=== PATIENT | male | born 1965 ===

== ENCOUNTER → 2018-01-19 | Outpatient (CLI) | payer BC ==
[~2018-01-19] MED LIST: CARV12.578 PO
[2018-01-19 11:51] LABS: PLATELET COUNT, AUTOMATED 215 K/uL (150-450)
[2018-01-19 12:01] LABS: LDL CHOLESTEROL 121 mg/dl
== END ==
LOC: LAB 10:57
PROVIDERS: ATTEND Internal Medicine
DX: Z12.5 Encounter for screening for malignant neoplasm of prostate (principal); I10 Essential (primary) hypertension
CPT/HCPCS: 36415; 81001; 82040; 82247; 82310; 82374; 82435; 82465; 82565; 82947; 83718; 84075; 84132; 84153; 84155; 84295; 84443; 84450; 84460; 84478; 84520; 84550; 85025

== ENCOUNTER 2018-02-16 12:46 | Inpatient (IN) | payer BC ==
[~2018-02-16] VITALS: Ht 182.9 cm; Wt 90.7 kg
[2018-02-16 13:29] VITALS: BP 125/87
--- NOTE | 2018-02-16 14:25 | History & Physical - General ---
History of Present Illness Chief Complaint Black tarry stools and dizziness History of Present Illness This patient is a pleasant 53-year-old male who was seen by me for the very 1st time less than 1 month ago according to patient he has moved here from [place] to help his parents. Chief complaint is that since yesterday morning he has had about 6 episodes of black tarry stools he denies any abdominal pain although feels like it is more sensitive in the lower abdomen he denies any nausea or vomiting yesterday after bowel movement he felt dizzy and almost fainted. Yesterday he also notices that his blood pressure was low throughout the day with systolic reading between 101 20. He did not take his diuretics and carvedilol yesterday morning he did take half dose of carvedilol today. His last colonoscopy was about 2 years ago in [place] according to patient he has 2 polyps removed but those were benign and was advised to repeat colonoscopy in 10 years patient denies any NSAID or aspirin use recently. He did have some wine to drink 2-3 days ago he denies any epigastric pain last bowel movement was last night he felt a little better today Patient has recently been started on blood pressure medications in the form of carvedilol and Dyazide he was not able to tolerate beta blockers in the past and amlodipine caused edema of the lower extremities and Benicar has caused angioedema in the past his blood pressure was 155/113 when he 1st came in on . The blood pressure has improved steadily on the present treatment with carvedilol 25 mg twice a day and triamterene/hydrochlorothiazide 37.5/25 once a day Hemoccult was done in the office and has shown clotted blood rest of the labs are unremarkable Hemoccult done through the lab was negative hemoglobin and hematocrit was 12.5/36.6 this has decreased from 16.8/48.6 on 01/11 ROS: Constitutional: Reports: Weakness, Denies: Fever, Chills, Weight Loss, Weight Gain ROS: Eyes: Denies: Eye Pain, Itchy Eye ROS: HENT: Denies: Ear Drainage, Ear Pain, Ear Pressure ROS: Neurological: Denies Syncope, Reports Dizziness, Denies Vertigo, Denies Seizure ROS: Respiratory: Denies Dyspnea, Denies SOB at Rest, Denies SOB w/ Exertion ROS: Cardiac: Denies Chest Pain at Rest, Denies Chest Pain w/ Exertion ROS: Gastrointestinal: Reports Diarrhea, Reports Black Tarry Stools, Denies Nausea, Denies Vomiting ROS: Genitourinary: Denies Urinary Frequency, Denies Dyuria, Denies Hematuria ROS: Integumentary: Denies Rash, Denies Lesions ROS: Psych: Denies Depression, Denies Anxiety ROS: Endocrine: Denies Intolerence to Heat, Denies Intolerence to Cold ROS: Lymph: Denies Swollen Lymph Nodes History Problems: (1) Hyperlipidemia Status: Chronic (2) Benign hypertension Status: Chronic Home Meds Active Scripts Carvedilol (CARVEDILOL) 25 Mg Tablet, 25 MG PO BID, #60 TAB 3 Refills Prov:SILVERIO DONALDSON MD 02/02/18 Triamterene/Hydrochlorothiazid (TRIAMTERENE-HCTZ 37.5-25 MG CP) 1 Each Capsule, 1 EACH PO QAM, #30 CAPSULE 3 Refills Prov:SILVERIO DONALDSON MD 01/26/18 Allergies: Coded Allergies: olmesartan (Verified Allergy, Unknown, angioedema, 01/19/18) Patient History: FH: breast cancer maternal grandma FH: colon cancer maternal grandmother FH: leukemia paternal grandfather FH: ovarian cancer MOTHER, Age:79 Hx Smoking: No Smoking Status: Never Smoker Hx Alcohol Use: Yes Alcohol Use: Currently Alcohol Used: Wine Hx Substance Use Disorder: No Social Drug Use: Never Review of Systems ROS: Constitutional: Reports: Malaise, Weakness, Denies: Fever, Chills, Weight Loss, Weight Gain ROS: Eyes: Denies: Eye Pain, Itchy Eye, Vision change ROS: HENT: Denies: Ear Drainage, Ear Pain, Ear Pressure ROS: Neurological: Denies Syncope, Reports Dizziness, Denies Vertigo, Denies Seizure ROS: Respiratory: Denies Dyspnea, Denies SOB at Rest, Denies SOB w/ Exertion ROS: Cardiac: Denies Chest Pain at Rest, Denies Chest Pain w/ Exertion ROS: Gastrointestinal: Reports Diarrhea, Reports Bloody Stools, Reports Black Tarry Stools, Denies Nausea, Denies Vomiting ROS: Genitourinary: Denies Urinary Frequency, Denies Dyuria, Denies Hematuria ROS: Psych: Denies Depression, Reports Anxiety, Denies Insomnia ROS: Endocrine: Denies Intolerence to Heat, Denies Intolerence to Cold Exam Constitutional: Well Nourished, Well Developed, No Distress Eyes: PERRL, Conjunctivae Clear, Sclera Clear ENT: Normal Respiratory: CTA throughout, Even, Unlabored Cardiac: Regular Rate & Rhythm, No Gallop, No JVD, No Murmur, No Edema Inspection: Flat Percussion: All Quadrants Tympanic Palpation: Soft, Non-tender, No Guarding, No Hepatosplenomegaly, Other ( positive clotted blood on rectal examination) Bowel Sounds: Active to all 4 Quadrants Male : No Suprapubic Tenderness Lymph: No Cervical Lymphadenopathy Musculoskeletal: Full ROM all 4 Extremitites Psych: Appropriate Mood and Affect Medical Decision Making Data Points Hemoglobin 12.5 and hematocrit 36.6. Rest of the labs are unremarkable Pre-Admit Course Medical Record Review: Yes Assessment and Plan Problems: (1) Lower GI bleeding Status: Acute Assessment & Plan: Patient has evidence of GI bleeding starting yesterday morning he has no obvious risk factors including NSAID use but hemoglobin and hematocrit has decreased from 16.8 and 48.6 on 01/19/18 to 12.5/36.6 today plan is to diabetic screen 2 units of blood and repeat H&H at [address] him on clear liquid diet he will also be placed on IV fluids and will request a consult from general surgeon Dr. Andrade who has been notified of the case (2) Dizziness Status: Acute Assessment & Plan: Likely related to the above blistered IV fluids at 0.9 normal saline with potassium (3) Benign hypertension Status: Chronic Assessment & Plan: Hold blood pressure medicine for now Time Spent on Plan of Care: < 30 min Venous Thromboembolism VTE Risk Patient's VTE Risk: Low VTE Diagnostic Test 2 Days Prior to Admit: No Antithrombotics Is Pt On Any Antithrombotics?: No Prophylaxis Tx Contraindicated Pharmacological Contraindicati: Active Bleeding Exam Sepsis Risk: No Definite Risk SILVERIO DONALDSON MD Feb 16, 2018 14:25
[2018-02-16] MEDS: PANTOPRAZOLE SOD 40 MG IV VIAL IVP SCH ×2 (15:23→21:04)
[2018-02-16] MEDS: KCL/NS* 20 MEQ/1000 ML PREMIX 1,000 ML IV PRN (15:23)
[2018-02-16] MEDS ORDERED: PEG (High)/E-LYTE SOLN 4000 ML PO ONE (17:00)
--- NOTE | 2018-02-16 18:12 | General Surgery Consultation ---
History of Present Illness Requesting Physician Dr. Lane Reason for Consult GI bleeding Chief Complaint Melena History of Present Illness 53-year-old male is admitted to the hospital with melena for the last week and increased in severity yesterday test 6 melanotic stools with associated lightheadedness but he has not yet had any melanotic stools today. No abdominal pain. No nausea or vomiting. No known family history of GI issues other than his grandma who had colon cancer but he does not recall at what age. The patient had a colonoscopy where a couple of benign polyps were removed and he was told to have another colonoscopy in 10 years. This colonoscopy was done in [facility]. The patient denies any previous history of peptic ulcer disease. He does not take NSAIDs or steroids. History Problems: (1) Hyperlipidemia Status: Chronic (2) Benign hypertension Status: Chronic Home Meds Active Scripts Carvedilol (CARVEDILOL) 25 Mg Tablet, 25 MG PO BID, #60 TAB 3 Refills Prov:SILVERIO LANE MD 02/02/18 Triamterene/Hydrochlorothiazid (TRIAMTERENE-HCTZ 37.5-25 MG CP) 1 Each Capsule, 1 EACH PO QAM, #30 CAPSULE 3 Refills Prov:SILVERIO LANE MD 01/26/18 Allergies: Coded Allergies: olmesartan (Verified Allergy, Unknown, angioedema, 01/19/18) Family History: FH: breast cancer maternal grandma FH: colon cancer maternal grandmother FH: leukemia paternal grandfather FH: ovarian cancer MOTHER, Age:79 Review of Systems Gastrointestinal: Melena Exam Vital Signs Vital Signs Date Time Temp Pulse Resp B/P (MAP) Pulse Ox O2 Delivery O2 Flow Rate FiO2 02/16/18 13:57 94 Room Air 02/16/18 13:29 98.3 79 18 125/87 (100) General Appearance: Alert, Awake, No Acute Distress, Afebrile Neuro: No Gross deficits Eyes: PERRLA GI: Abd Soft and Non-Tender Extremities: Warm, Perfused Assessment and Plan Problems: (1) Black tarry stools Status: Acute Assessment & Plan: 02/16/2018: Patient is admitted to Med/Surg by Dr. Lane and I have been consulted. The most likely source of his melena is an upper GI source such as peptic ulcer disease. I have recommended an EGD and colonoscopy and I have explained the reasoning behind this even though he is just had a colonoscopy 2 years ago. He was asymptomatic at the time of that colonoscopy, it was for screening purposes only. He is now having melena and so for optimal workup upper and lower GI endoscopy is recommended. I have explained both procedures to him in great detail as well as their alternatives and risks. He indicates his understanding of this discussion and his questions been answered. He would like to proceed with both EGD and colonoscopy. Condition Stable Time Spent: < 30 min Venous Thromboembolism Antithrombotics Is Pt On Any Antithrombotics?: No MABEL FINCH MD Feb 16, 2018 18:12
[2018-02-16 18:45] VITALS: BP 130/94
[2018-02-16 20:11] VITALS: BP 121/70
[2018-02-16 23:28] VITALS: BP 122/77
[2018-02-17 03:46] VITALS: BP 127/92
[2018-02-17] MEDS: KCL/NS* 20 MEQ/1000 ML PREMIX 1,000 ML IV PRN (05:03)
[2018-02-17 05:55] LABS: PLATELET COUNT, AUTOMATED 144 K/uL (150-450)
[2018-02-17 07:00] VITALS: BP 130/95
[2018-02-17] MEDS ORDERED: LR(*) 1000 ML BAG 1,000 ML ONE (07:00)
[2018-02-17] MEDS ORDERED: PROPOFOL EMUL(*) 10MG/ML 20 ML 60 ML ONE (07:21)
[2018-02-17] MEDS ORDERED: LIDOCAINE MPF 1% 5 ML VIAL ONE (07:21)
--- NOTE | 2018-02-17 07:24 | General Surgery Progress Note ---
Subjective Progress Notes Subjective No complaints this morning. Feeling good. "I feel better after the bowel prep. " No more blood in stools, stools clear. Physical Exam Vital Signs Date Time Temp Pulse Resp B/P (MAP) Pulse Ox O2 Delivery O2 Flow Rate FiO2 02/17/18 07:00 97.7 83 16 130/95 (107) 100 Room Air General Appearance: Alert, Awake, No Acute Distress, Afebrile GI: Soft and Non-Tender Extremities: Warm, Perfused Result Diagram: 02/17/18 0532 02/17/18 0532 Assessment and Plan Problems: (1) Black tarry stools Status: Acute Assessment & Plan: 02/16/2018: Patient is admitted to Med/Surg by Dr. Lane and I have been consulted. The most likely source of his melena is an upper GI source such as peptic ulcer disease. I have recommended an EGD and colonoscopy and I have explained the reasoning behind this even though he is just had a colonoscopy 2 years ago. He was asymptomatic at the time of that colonoscopy, it was for screening purposes only. He is now having melena and so for optimal workup upper and lower GI endoscopy is recommended. I have explained both procedures to him in great detail as well as their alternatives and risks. He indicates his understanding of this discussion and his questions been answered. He would like to proceed with both EGD and colonoscopy. 02/17/18: Doing well. No further signs of ongoing GI bleeding. H/H stable ( even up a little). Will proceed with EGD and colonoscopy this morning. Pt wishes to proceed. Condition Stable. Time Spent: < 30 min Exam Sepsis Risk: No Definite Risk MABEL FINCH MD Feb 17, 2018 07:24
[2018-02-17] MEDS ORDERED: BARIUM SULFATE 600 ML SUSP ONE (08:53)
[2018-02-17] MEDS: PANTOPRAZOLE SOD 40 MG IV VIAL IVP SCH (09:00)
[2018-02-17 12:18] VITALS: BP 128/95
--- NOTE | 2018-02-17 13:14 | Medical Nutrition Therapy ---
Nutrition Anthropometrics Height (Inches): 72.00 Height (Calculated Centimeters: 182.544966 Weight (Pounds): 200 Weight (Calculated Kilograms): 90.718 Jarvis Nutrition Score: Adequate Jarvis Nutrition Risk Score: 20 Dietary Referral Nutrition Risk Factors: Nutrition Risk Comment: Nutritional Diagnosis Nutritional Risk Acuity 3: GI Bleed Past Medical History: HLD and benign HTN Nutritional Acuity: 3-Mild Nutrition Diagnosis: Altered GI Function Nutrition Etiology: Physiological Causes Nutrition Problem/Etiology/Sym: Altered GI Function related to physiological causes as evidence by lower GI bleed with black tarry stools. Energy Requirement: 2270 (kcal/day (25 kcal/kg)) Protein Requirement: 82 (g/day (0.9 g/kg)) Fluid Requirement: 2720 (mL/day (30 mL/kg)) Diet Type: NPO (Nothing by Mouth) Nutrition Intervention: Incr diet as tolerated Nutrition Monitoring & Eval Nutrition Goals: Diet advancement as tolerated Nutrition Follow-Up: Poor Intake RD Patient Assessment Time: [address] Assessment Type: RD Assessment Patient Nutrition Acuity: 3-Mild Follow Up Date: Feb 20, 2018 Nutritional Comment: 02/17 Pt admitted for lower GI bleed. Plan for EGD and colonoscopy today. Pt diet order NPO. Pt has consumed 100% x 1 clear tray prior to NPO diet order. Pt inappropriate for visit today due to NPO diet order and colonoscopy prep. HGB 10.5, HCT 30.0, ALB 2.7. Monitor pt progress, diet advancement and tolerance to PO intake. GLENIS FERRARO Feb 17, 2018 09:12
--- NOTE | 2018-02-17 16:39 | Hospitalist Progress Note ---
Subjective Progress Notes Subjective Patient underwent EGD and colonoscopy earlier today no obvious bleeding source identified hemoglobin earlier today was 10.5 which is improved from yesterday patient did undergo a small bowel follow-through the results are awaited is hungry and has been cleared to eat regular diet Diastolic blood pressure is somewhat elevated since patient has been off his blood pressure medications Patient Complains of: Neurological: No: Syncope, Confusion, Weakness Cardiovascular: No: Chest Pain, Palpitations Respiratory: No: Cough, Congestion, Shortness of Breath Gastrointestinal: No Vomiting, No Bowel Movement Genitourinary: No Dysuria Physical Exam Vital Signs Date Time Temp Pulse Resp B/P (MAP) Pulse Ox O2 Delivery O2 Flow Rate FiO2 02/17/18 12:18 98.1 16 128/95 (106) 100 Nasal Cannula 1.0 02/17/18 08:45 61 Intake and Output 02/18/18 07:00 Intake Total 1900 ml Balance 1900 ml Intake Oral 100 ml IV Total 900 ml Other 900 ml Result Diagram: 02/17/18 0532 02/17/18 0532 Assessment and Plan Problems: (1) Lower GI bleeding Status: Acute Assessment & Plan: 02/16/18 Patient has evidence of GI bleeding starting yesterday morning he has no obvious risk factors including NSAID use but hemoglobin and hematocrit has decreased from 16.8 and 48.6 on 01/19/18 to 12.5/ 36.6 today plan is to diabetic screen 2 units of blood and repeat H&H at [address] him on clear liquid diet he will also be placed on IV fluids and will request a consult from general surgeon Dr. Andrade who has been notified of the case 02/17/18 EGD and colonoscopy without any obvious bleeding source hemoglobin and hematocrit has stabilized to slightly improved since yesterday and small bowel follow-through has been completed the results are awaited patient has been cleared to have regular diet by Dr. Andrade and IV fluids have been discontinued anticipate discharge tomorrow if he continues to do well (2) Dizziness Status: Acute Assessment & Plan: 02/16/18 Likely related to the above IV fluids at 0.9 normal saline with Resolved likely related to lower GI bleed and antihypertensive medications plan is to DC IV fluids and start regular diet (3) Benign hypertension Status: Chronic Assessment & Plan: Hold blood pressure medicine for now 02/17/18 plan is to resume blood pressure medication in the morning if no further signs of bleeding Exam Sepsis Risk: No Definite Risk SILVERIO DONALDSON MD Feb 17, 2018 16:39
--- NOTE | 2018-02-17 17:23 | RADIOLOGY IMAGING REPORT ---
FACILITY: [facility] - [place] PATIENT NAME: Zackary Vázquez : 1965 MR: [id number] V: [id number] EXAM DATE: ORDERING PHYSICIAN: MABEL FINCH TECHNOLOGIST: Location: Patient: Zackary Vázquez : 1965 Visit/Account:[id number] Date of Sevice: 02/17/2018 Exam type: SMALL BOWEL SERIES History: GI bleeding, negative EGD/c-scope Comparison: None. Findings: The patient received 1000 mL of intravenous with oral contrast. Multiple sequential images were obta ined over the abdomen and pelvis. The contrast was followed throughout the small bowel to the unrema rkable terminal ileum. Transit time to the right-sided colon was two hours and 15 minutes. The muco leroy pattern appeared unremarkable. There is no evidence of bowel obstruction or extrinsic mass effec t. No demonstration of a Meckel's diverticulum. The fluoroscopy dose area product was 1210.41 micro -Calvo per meter squared IMPRESSION: 1. Normal-appearing small bowel series Report Dictated By: Barbara Moran MD at 02/17/2018 5:12 PM Report E-Signed By: Barbaar Moran MD at 02/17/2018 5:15 PM SILVIAN:GILBERTO
[2018-02-17 19:14] VITALS: BP 126/91
--- NOTE | 2018-02-18 05:39 | General Surgery Progress Note ---
Subjective Progress Notes Subjective No complaints. Had a small bowel movement overnight which was just barium, no blood. No other issues. Physical Exam Vital Signs Date Time Temp Pulse Resp B/P (MAP) Pulse Ox O2 Delivery O2 Flow Rate FiO2 02/18/18 00:25 53 93 Room Air 02/17/18 19:14 98.1 14 126/91 (103) 02/17/18 12:18 1.0 General Appearance: Alert, Awake, No Acute Distress, Afebrile GI: Soft and Non-Tender Extremities: Warm, Perfused Result Diagram: 02/17/18 0532 02/17/18 0532 Assessment and Plan Problems: (1) Black tarry stools Status: Acute Assessment & Plan: 02/16/2018: Patient is admitted to Med/Surg by Dr. Lane and I have been consulted. The most likely source of his melena is an upper GI source such as peptic ulcer disease. I have recommended an EGD and colonoscopy and I have explained the reasoning behind this even though he is just had a colonoscopy 2 years ago. He was asymptomatic at the time of that colonoscopy, it was for screening purposes only. He is now having melena and so for optimal workup upper and lower GI endoscopy is recommended. I have explained both procedures to him in great detail as well as their alternatives and risks. He indicates his understanding of this discussion and his questions been answered. He would like to proceed with both EGD and colonoscopy. 02/17/18: Doing well. No further signs of ongoing GI bleeding. H/H stable ( even up a little). Will proceed with EGD and colonoscopy this morning. Pt wishes to proceed. 02/18/18: Doing well. No signs of further GI bleeding. Awaiting this morning' s labs but H/H has been stable. EGD and colonoscopy completed yesterday without any old or new blood and no pathology in esophagus, stomach, or duodenum to D3, or colon that would serve as a source of bleeding. Normal SBFT as well. Pt doing well so if labs look good this morning then he can go home. I will have my nurse schedule a Meckel scan and a f/u appointment to see me in my office. If he exhibits recurring GI bleeding and Meckel scan is negative then he will require small bowel capsule endoscopy. Condition Stable. Time Spent: < 30 min Exam Sepsis Risk: No Definite Risk MABEL FINCH MD Feb 18, 2018 05:39
[2018-02-18 05:49] LABS: PLATELET COUNT, AUTOMATED 155 K/uL (150-450)
[2018-02-18 07:42] VITALS: BP 142/102
[2018-02-18] MEDS ORDERED: PANTOPRAZOLE SOD 40 MG TABEC PO SCH (09:00)
[2018-02-18] MEDS ORDERED: FAMO20TA28 PO (14:02)
--- NOTE | 2018-02-19 08:33 | Hospitalist Depart ---
Discharge Summary Reason for Hosp/Final Diag: (1) Lower GI bleeding Status: Resolved Hospital Course & Plan: 02/16/18 Patient has evidence of GI bleeding starting yesterday morning he has no obvious risk factors including NSAID use but hemoglobin and hematocrit has decreased from 16.8 and 48.6 on 01/19/18 to 12.5/ 36.6 today plan is to diabetic screen 2 units of blood and repeat H&H at [address] him on clear liquid diet he will also be placed on IV fluids and will request a consult from general surgeon Dr. Andrade who has been notified of the case 02/17/18 EGD and colonoscopy without any obvious bleeding source hemoglobin and hematocrit has stabilized to slightly improved since yesterday and small bowel follow-through has been completed the results are awaited patient has been cleared to have regular diet by Dr. Andrade and IV fluids have been discontinued anticipate discharge tomorrow if he continues to do well 02/18/18 hemoglobin and hematocrit has remained stable since yesterday no signs of bleeding noted patient is able to tolerate diet well he denies any dizziness or lightheadedness plan is to discharge him home today he will need a nuclear medicine Meckel's scan which is to be scheduled by Dr. Andrade's office Patient will continue to watch for signs and symptoms of lower GI bleed and contact our office immediately if he notices any (2) Dizziness Status: Acute Hospital Course & Plan: 02/16/18 Likely related to the above IV fluids at 0.9 normal saline with potassium 02/17/18 Resolved likely related to lower GI bleed and antihypertensive medications plan is to DC IV fluids and start regular diet 02/18/18 IV fluid has been discontinued and patient has remained stable without any signs of dizziness (3) Benign hypertension Status: Chronic Hospital Course & Plan: Hold blood pressure medicine for now 02/17/18 plan is to resume blood pressure medication in the morning if no further signs of bleeding blood pressure has been increasing plan is to start him on carvedilol 25 mg twice a day and I will continue to hold off on Dyazide for now patient is to follow-up in the office in one week Departure Weight (Pounds): 200 Result Diagram: 02/18/18 0520 02/18/18 0520 Item Value Date Time Hemoglobin 9.8 g/dL L 02/16/18 1756 Hemoglobin 11.0 g/dL L 02/17/18 0000 Hemoglobin 10.5 g/dL L 02/17/18 0532 Hemoglobin 10.7 g/dL L 02/18/18 0520 Hematocrit 28.7 % L 02/16/18 1756 Hematocrit 31.3 % L 02/17/18 0000 Hematocrit 30.0 % L 02/17/18 0532 Hematocrit 31.2 % L 02/18/18 0520 Platelet Count 144 K/uL L 02/17/18 0532 Platelet Count 155 K/uL 02/18/18 0520 Helicobacter pylori IgG Antibody Negative 02/17/18531 Stool Occult Blood (IFOB) Negative 02/16/182004 Imaging FACILITY: [facility] - [place] PATIENT NAME: Zackary Vázquez : 1965 MR: [id number] V: [id number] EXAM DATE: ORDERING PHYSICIAN: MABEL FINCH TECHNOLOGIST: [place] [facility] [place]ary Váz[place] : 1965 Visit/Account:[id number] Date of Sevice: 02/17/2018 Exam type: SMALL BOWEL SERIES History: GI bleeding, negative EGD/c-scope Comparison: None. Findings: The patient received 1000 mL of intravenous with oral contrast. Multiple sequential images were obtained over the abdomen and pelvis. The contrast was followed throughout the small bowel to the unremarkable terminal ileum. Transit time to the right-sided colon was two hours and 15 minutes. The mucosal pattern appeared unremarkable. There is no evidence of bowel obstruction or extrinsic mass effect. No demonstration of a Meckel's diverticulum. The fluoroscopy dose area product was 1210.41 micro-Calvo per meter squared IMPRESSION: 1. Normal-appearing small bowel series Report Dictated By: aBrbara Moran MD at 02/17/2018 5:12 PM Report E-Signed By: Barbara Moran MD at 02/17/2018 5:15 PM Condition: Improved Discharge: Home Time Spent: < 30 min Discharge Instructions Home Meds Active Scripts Famotidine (PEPCID) 20 Mg Tablet, 1 TAB PO Q6H, #4 TAB 0 Refills Take 1 tablet by mouth every 6 hours for 4 doses for the 24 hours leading up to your Meckel scan. Prov:MABEL FINCH MD 02/18/18 Carvedilol (CARVEDILOL) 25 Mg Tablet, 25 MG PO BID, #60 TAB 3 Refills Prov:SILVERIO DONALDSON MD 02/02/18 Discontinued Scripts Triamterene/Hydrochlorothiazid (TRIAMTERENE-HCTZ 37.5-25 MG CP) 1 Each Capsule, 1 EACH PO QAM, #30 CAPSULE 3 Refills Prov:SILVERIO DONALDSON MD 01/26/18 Diet: Regular Activity: As Tolerated Special Instructions: Will follow up with me within one week and will follow-up with Dr. Andrade in 1-2 weeks patient to have Meckel's scan outpatient To contact our office or go to the emergency room if notices any signs of bleeding Venous Thromboembolism Antithrombotics Is Pt On Any Antithrombotics?: No SILVERIO DONALDSON MD Feb 19, 2018 08:33
== END 2018-02-18 09:15 | disposition home or self-care (01) | DRG 379 ==
LOC: OBSVTOIN 13:16 → INTOOBSV 13:16 → MED 13:16
PROVIDERS: ADMIT Internal Medicine; ATTEND Internal Medicine
PROC: 0DBL8ZX Excision of Transverse Colon, Via Natural or Artificial Opening Endoscopic, Diagnostic (ICD-10-PCS; principal; 2018-02-16)
PROC: 0DJ08ZZ Inspection of Upper Intestinal Tract, Via Natural or Artificial Opening Endoscopic (ICD-10-PCS; 2018-02-16)
DX: K92.2 Gastrointestinal hemorrhage, unspecified (principal); K63.5 Polyp of colon; I10 Essential (primary) hypertension; E78.5 Hyperlipidemia, unspecified; Z88.8 Allergy status to other drugs, medicaments and biological substances
CPT/HCPCS: 36415; 74250; 82040; 82247; 82274; 82310; 82374; 82435; 82565; 82947; 84075; 84132; 84155; 84295; 84450; 84460; 84520; 85014; 85018; 85025; 86677; 86850; 86900; 86901; 88305; C9113; J2001; J2704; J3480

== ENCOUNTER → 2018-02-16 | Outpatient (CLI) | payer BC ==
[~2018-02-16] MED LIST changes: +CARV25TA78 PO; +TRIA1CAP85 PO
[2018-02-16 12:09] LABS: PLATELET COUNT, AUTOMATED 182 K/uL (150-450)
[2018-02-16 12:18] LABS: INR 1.01
== END ==
LOC: LAB 11:31
PROVIDERS: ATTEND Internal Medicine
DX: K92.1 Melena (principal); I10 Essential (primary) hypertension; R42 Dizziness and giddiness
CPT/HCPCS: 36415; 82040; 82150; 82247; 82274; 82310; 82374; 82435; 82565; 82947; 83690; 84075; 84132; 84155; 84295; 84450; 84460; 84520; 85025; 85610; 85730; 87338

== ENCOUNTER → 2018-02-24 | Outpatient (CLI) | payer BC ==
[~2018-02-24] MED LIST changes: +FAMO20TA28 PO
--- NOTE | 2018-02-25 09:17 | RADIOLOGY IMAGING REPORT ---
[place] [facility] [place]IENT NAME: Zackary Vázquez : 1965 MR: [id number] V: [id number] EXAM DATE: ORDERING PHYSICIAN: MABEL FINCH TECHNOLOGIST: Location: [facility] - [place] Patient: Zackary Vázquez : 1965 Visit/Account:[id number] Date of Sevice: 02/24/2018 EXAMINATION: Meckel scan 02/24/2018 7:53 AM HISTORY: Black tarry stools TECHNIQUE: The patient was mastered 21.2 mCi technetium 99m pertechnetate intravenously. Anterior bhargav ges of the abdomen and pelvis were obtained out to 62 minutes. COMPARISON: Negative small bowel series 02/17/2018 FINDINGS: There is physiologic distribution of tracer. Radiotracer is visible in the in vasculature, the stomach, and excreted in the kidneys and bladder. No abnormal focal localization in the right lo wer quadrant indicate a Meckel's diverticulum is evident. There is persistent localization along the descending colon which does not really move and the pattern would not clearly be supportive of extrav asation related any active bleeding in the region of the splenic flexure. IMPRESSION: 1. No evidence of Meckel's diverticulum with ectopic gastric mucosa. 2. Pertechnetate localization along the descending colon. This is of uncertain significance but might indicate some hyperemia or inflammation. This does not have a clear progressive pattern to indicate any active GI bleed. Report Dictated By: Jorge Cuevas MD at 02/25/2018 8:35 AM Report E-Signed By: Jorge Cuevas MD at 02/25/2018 9:11 AM WSN:[id number]
== END ==
LOC: NUC 00:48
PROVIDERS: ATTEND Surgery
DX: K92.2 Gastrointestinal hemorrhage, unspecified (principal); K92.1 Melena
CPT/HCPCS: 78290; A9512

== ENCOUNTER → 2018-02-25 | Outpatient (CLI) | payer BC ==
[2018-02-25 14:12] LABS: PLATELET COUNT, AUTOMATED 233 K/uL (150-450)
== END ==
LOC: LAB 13:34
PROVIDERS: ATTEND Internal Medicine
DX: K92.2 Gastrointestinal hemorrhage, unspecified (principal); I10 Essential (primary) hypertension; E78.5 Hyperlipidemia, unspecified
CPT/HCPCS: 36415; 82040; 82247; 82310; 82374; 82435; 82565; 82728; 82947; 83540; 83550; 84075; 84132; 84155; 84295; 84450; 84460; 84520; 85025

== ENCOUNTER → 2018-07-02 | Outpatient (CLI) | payer BC ==
[~2018-07-02] MED LIST changes: +VARI50KI IM
[2018-07-02 09:35] LABS: PLATELET COUNT, AUTOMATED 181 K/uL (150-450)
[2018-07-02 09:51] LABS: LDL CHOLESTEROL 82 mg/dl
== END ==
LOC: LAB 09:03
PROVIDERS: ATTEND Internal Medicine
DX: I10 Essential (primary) hypertension (principal); E78.5 Hyperlipidemia, unspecified
CPT/HCPCS: 36415; 81001; 82040; 82247; 82310; 82374; 82435; 82465; 82565; 82947; 83718; 84075; 84132; 84155; 84295; 84443; 84450; 84460; 84478; 84520; 85025

== ENCOUNTER 2018-12-31 14:09 | Emergency (ER) | payer BC ==
--- NOTE | 2018-12-31 15:42 | RADIOLOGY IMAGING REPORT ---
FACILITY: [facility] - [place] PATIENT NAME: Zackary Vázquez : 1965 MR: [id number] V: [id number] EXAM DATE: ORDERING PHYSICIAN: LUÍS KELLEY TECHNOLOGIST: Location: [facility] - [place] Patient: Zackary Vázquez : 1965 Visit/Account:[id number] Date of Sevice: 12/31/2018 Exam type: XR THORACIC SPINE AP & LAT History: fall with back and rib pain Comparison: None. Findings: There is no evidence of acute fracture dislocation in the thoracic spine. There are mild multilevel spondylotic changes present. IMPRESSION: 1. Mild spondylotic changes of the thoracic spine although no evidence of acute fracture or subluxat ion seen Report Dictated By: Barbara Moran MD at 12/31/2018 3:36 PM Report E-Signed By: Barbara Moran MD at 12/31/2018 3:37 PM WSN:[id number]
--- NOTE | 2018-12-31 15:42 | RADIOLOGY IMAGING REPORT ---
FACILITY: [facility] PATIENT NAME: Zackary Vázquez : 1965 MR: [id number] V: [id number] EXAM DATE: ORDERING PHYSICIAN: LUÍS KELLEY TECHNOLOGIST: Location: [facility] [place] Patient: Zackary Vázquez : 1965 Visit/Account:[id number] Date of Sevice: 12/31/2018 Exam type: CHEST PA LAT History: fall with pain in ribs Comparison: None. Findings: The lungs are free of acute effusions infiltrates or edema. There is no evidence of a pneumothorax o r pneumomediastinum. The cardiac silhouette is normal in size. The trachea is in midline. There ar e mild spondylotic changes of the thoracic spine. No gross evidence of a rib fracture however if thi s is of clinical concern rib series recommended IMPRESSION: 1. No acute cardiopulmonary process is seen Report Dictated By: Barbara Moran MD at 12/31/2018 3:37 PM Report E-Signed By: Barbara Moran MD at 12/31/2018 3:38 PM WSN:[id number]
[2018-12-31] MEDS ORDERED: KETOROLAC 60 MG/2 ML VIAL IM ONE (15:45)
[2018-12-31] MEDS ORDERED: LIDOCAINE 5% PATCH TP SCH (15:55)
[2018-12-31] MEDS ORDERED: HYDR-385 PO (16:50)
--- NOTE | 2018-12-31 16:51 | ER Report ---
History and Physical Time Seen By MD: 14:00 Hx. 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 He landed on his back. He was tolerating the pain until 1 hour prior to arrival he sneezed. He states the sneezing episode "almost brought me to my knees" with pain. He feels better when sitting still. No pain with breathing, but with movement. No neuro deficits or complaints. No complaints of midline pain or TTP. No other pain or injuries. Remainder of the 14 system rev: Yes Allergies: Coded Allergies: amlodipine (Verified Allergy, Intermediate, edema, 12/31/18) olmesartan (Verified Allergy, Unknown, angioedema, 12/31/18) Home Meds Active Scripts Hydrocodone Bit/Acetaminophen (HYDROCODON-ACETAMINOPHEN 5-325) 1 Each Tablet, 1 EACH PO Q6H for 2 Days, #6 TAB Prov:LUÍS KELLEY MD 12/31/18 Carvedilol (CARVEDILOL) 25 Mg Tablet, 25 MG PO BID, #180 TAB 3 Refills Prov:SILVERIO DONALDSON MD 07/02/18 Reviewed Nurses Notes: Yes Old Medical Records Reviewed: Yes Hx Smoking: No Smoking Status: Never Smoker Hx Substance Use Disorder: No Hx Alcohol Use: Yes Constitutional Vital Sign - Last 24 Hours 12/31/18 12/31/18 12/31/18 12/31/18 14:21 14:21 14:30 15:00 Temp 98.2 Pulse 63 67 67 Resp 12 B/P (MAP) 140/106 (117) 140/106 124/94 (104) 120/91 (101) Pulse Ox 92 92 92 O2 Delivery Room Air 12/31/18 12/31/18 15:15 15:30 Pulse 65 66 B/P (MAP) 121/89 (100) Pulse Ox 92 94 Physical Exam General Appearance: The patient is alert, has no immediate need for airway protection and no current signs of toxicity. Eyes: Pupils equal and round no injection. Respiratory: Chest is non tender, lungs are clear to auscultation. Cardiac: regular rate and rhythm Gastrointestinal: Abdomen is soft and non tender, no masses, bowel sounds normal. Musculoskeletal: TTP at the right upper back just lateral to T5/6. No crepitus. Neck: Neck is supple and non tender. Extremities have full range of motion and are non tender. Skin: No ecchymoses, lacerations, or abrasions Medical Decision Making ED Course/Re-evaluation ED Course No evidence of rib fracture or PTX. No midline TTP. No neuro deficits. Pain improved with Toradol. Lidocaine patch placed. Will give short course of vicodin and also recommended ibuprofen for pain relief. Decision to Disposition Date: Dec 31, 2018 Decision to Disposition Time: 16:49 Depart Departure Latest Vital Signs Vital Signs Date Time Temp Pulse Resp B/P (MAP) Pulse Ox O2 Delivery O2 Flow Rate FiO2 12/31/18 15:30 66 121/89 (100) 94 12/31/18 14:21 98.2 12 Room Air Impression: Primary Impression: Rib contusion Condition: Improved Disposition: HOME OR SELF-CARE Referrals: SILVERIO DONALDSON MD (PCP) New Scripts Hydrocodone Bit/Acetaminophen (HYDROCODON-ACETAMINOPHEN 5-325) 1 Each Tablet 1 EACH PO Q6H for 2 Days, #6 TAB Prov: LUÍS KELLEY MD 12/31/18 Patient Instructions: Contusion in Adults (ED) Problem Qualifiers Primary Impression: Rib contusion Encounter type: initial encounter Laterality: right Qualified Codes: S20.211A - Contusion of right front wall of thorax, initial encounter LUÍS KELLEY MD Dec 31, 2018 16:51
[2018-12-31 17:07] VITALS: BP 118/79
[2018-12-31] MEDS ORDERED: PATCH REMOVAL 1 EA TOP SCH (21:00)
== END 2018-12-31 17:05 | disposition home or self-care (01) ==
LOC: ER 14:28
DX: S20.221A Contusion of right back wall of thorax, initial encounter (principal); W00.0XXA Fall on same level due to ice and snow, initial encounter
CPT/HCPCS: 71046; 72070; 96372; 99283; J1885